=== PATIENT | female | born 1945 | race Caucasian/White ===

== ENCOUNTER 2020-09-29 08:43 | Emergency (ER) | payer MEDICARE, SELFPAY ==
[2020-09-29] VITALS (7 sets, daily range): BP systolic 148–169; BP diastolic 84–99; PULSE 66–78; RESP 12–18; TEMP 36.4; O2SAT 98–100
[2020-09-29 09:43] LABS: Add Urine Microscopic? YES; Appearance Urine Clear (Clear); Bilirubin Urine Negative (Negative); Blood Urine Negative (Negative); Color Urine Yellow (Yellow); Glucose Urine UA Negative (Negative); Ketones Urine Negative (Negative); Leukocyte Esterase Ur Negative LEU/UL (Negative); Mucus Urine Rare /lpf; Nitrate Urine Negative (Negative); Protein Urine Negative (Negative); RBC Urine 0-2 /hpf (0-2); Specific Grav Ur 1.014 (1.001-1.035); Squamous Epithelial Cell Urine Occasional /hpf (Few); Urobilinogen Urine Negative mg/dL (<2.0)
--- NOTE | 2020-09-29 10:13 | PC.NURSE ---
This nurse attempted blood draw x 1, factory laborer attempted x 1. Unsuccessful, phlebotomy notified and at bedside.
[2020-09-29 10:27] LABS: Basophils Percent Auto 0.3 % (0.2-1.2); Eosinophils Absolute Auto 0.1 K/mm3 (0-0.3); Eosinophils Percent Auto 0.7 % (0-4.4); Hematocrit 43.4 % (37.0-47.0); Hemoglobin 14.4 g/dL (12.0-15.0); Immature Granulocyte Absolute 0.03 K/mm3 (0.00-0.031); Immature Granulocyte Percent A 0.4 % (0-0.5); Immature Platelet Fraction Pct 3.6 % (0.9-11.2); Lymphocytes Absolute Auto 0.88 K/mm3 (0.9-3.2); Mean Corpuscular HGB Conc 33.2 g/dl (32-36); Mean Corpuscular Hemoglobin 31.6 pg (26-34); Mean Corpuscular Volume 95.2 fl (80-100); Mean Platelet Volume 10.5 fl (7.4-10.4); Monocytes Absolute Auto 0.4 K/mm3 (0.1-0.6); Monocytes Percent Auto 5.2 % (2.6-8.5); Neutrophils Percent Auto 81.4 % (45.5-73.1); Platelet Count Result 131 k/mm3 (150-375); Red Blood Count 4.56 M/mm3 (4.2-5.4); Red Cell Distribution Width 13.7 % (11.5-14.5); White Blood Count 7.3 K/mm3 (4.5-10.0)
--- NOTE | 2020-09-29 10:28 | ED.GENADULT ---
HPI - General Adult General Chief complaint: Seizure Stated complaint: SZ Time Seen by Provider: 09/29/20 08:50 History of Present Illness HPI narrative: Patient is a 75-year-old female who presents ER status post seizure. Patient has history of seizures and takes Keppra. Her last seizure was 2 years ago. She had just taken her antiepileptics right before having a seizure. Lasted 2 minutes or less. [facility] for profound dementia. She has a home caregiver who assists the with the patient's care. Patient did not experience any trauma. She presents postictal. At baseline patient is nonverbal. Related Data Home Medications Medication Instructions Recorded Confirmed lactobacillus combination no.8 3,000 mmu cells PO DAILY 09/29/20 [Adult Probiotic] olanzapine 5 mg PO HS 09/29/20 Allergies Allergy/AdvReac Type Severity Reaction Status Date / Time Penicillins Allergy Unknown Verified 09/29/20 08:57 Review of Systems Review of Systems: ROS unobtainable: Yes unobtainable due to medical condition and unobtainable due to mental status PMFSH Past Medical History Medical History (Updated 09/29/20 @ 13:30 by [facility] Erickson MD) Alzheimer's dementia with behavioral disturbance Hypothyroidism (acquired) Right hemiplegia Seizure disorder Subarachnoid hemorrhage Unable to walk Family History Family History (Updated 09/24/16 @ 10:04 by DOCTOR UNKNOWN) Mother Diabetes mellitus Father Malignant neoplasm of prostate Sibling Family history of malignant neoplasm of breast in first degree relative Social History Social History (Updated 12/23/19 @ 10:59 by Carol Geller) Social History: Smoking status: Never smoker Second hand tobacco smoke exposure: No Alcohol intake: never Substance use type: does not use Gender identity (if verbalized by the patient): Female Exam Narrative: Exam Narrative: GENERAL: Well-appearing, well-nourished, and in no acute distress. HEAD: Normocephalic, atraumatic. EYES: PERRL and EOMI. CHEST: Clear to auscultation. No respiratory distress. HEART: Regular rate and rhythm. Normal peripheral pulses. ABDOMEN: Soft, nontender, nondistended. EXTREMITIES: Normal range of motion. 2+edema. SKIN: Warm, dry, no rash. NEURO: POpens eyes to speech and reacts to pain. Alert and oriented x 0. Course Course Emergency Course: Patient now at neurologic baseline after prolonged observation according to . I discussed case with Priya Lewis the patient's nurse at [facility]. She checks Keppra levels on the patient regularly and will continue to evaluate the patient the home. No recommendation for change medications. Vital Signs Vital signs: Vital Signs Temperature 97.6 F 09/29/20 08:49 Pulse Rate 78 09/29/20 08:49 Respiratory Rate 16 09/29/20 08:49 Blood Pressure 159/99 H 09/29/20 08:49 Pulse Oximetry 98 09/29/20 08:49 Temperature 97.6 F 09/29/20 08:49 Pulse Rate 68 09/29/20 12:02 Respiratory Rate 18 09/29/20 12:02 Blood Pressure 169/98 H 09/29/20 12:02 Pulse Oximetry 99 09/29/20 12:02 Medical Decision Making Vital Signs Vital Signs: Vital Signs Temperature 97.6 F 09/29/20 08:49 Pulse Rate 78 09/29/20 08:49 Respiratory Rate 16 09/29/20 08:49 Blood Pressure 159/99 H 09/29/20 08:49 Pulse Oximetry 98 09/29/20 08:49 Temperature 97.6 F 09/29/20 08:49 Pulse Rate 68 09/29/20 12:02 Respiratory Rate 18 09/29/20 12:02 Blood Pressure 169/98 H 09/29/20 12:02 Pulse Oximetry 99 09/29/20 12:02 Lab Data Result diagrams: 09/29/20 10:18 09/29/20 10:18 Labs: Lab Results 09/29/20 09/29/20 09/29/20 Range/Units 09:33 10:18 10:18 WBC 7.3 (4.5-10.0) K/mm3 RBC 4.56 (4.2-5.4) M/mm3 Hgb 14.4 (12.0-15.0) g/dL Hct 43.4 (37.0-47.0) % MCV 95.2 (80-100) fl MCH 31.6 (26-34) pg MCH
[2020-09-29 10:36] LABS: Anion Gap 4 mmol/L (8-16); Blood Urea Nitrogen 15 mg/dL (7-17); Calcium 8.8 mg/dL (8.4-10.2); Carbon Dioxide 31 mmol/L (22-30); Chloride 107 mmol/L (98-107); Estimated CRCL calculation 71 ml/min; Estimated Glomerular Filt Rate > 60; Glucose 136 mg/dL (65-105); Potassium 3.8 mmol/L (3.4-5.0); Sodium 142 mmol/L (137-145)
== END 2020-09-29 14:29 | disposition home or self-care (01) ==
PROVIDERS: Emergency Provider Emergency Medicine; PCP Family Medicine
DX: G40.909 Epilepsy, unspecified, not intractable, without status epilepticus (principal); G30.9 Alzheimer's disease, unspecified; F02.81 Dementia in other diseases classified elsewhere, unspecified severity, with behavioral disturbance; E03.9 Hypothyroidism, unspecified
CPT/HCPCS: 36415; 51701; 80048; 81001; 85025; 85055; 99283

== ENCOUNTER 2022-02-06 11:24 | Emergency (ER) | payer MEDICARE, SELFPAY ==
--- NOTE | ~2022-02-06 | XR_ITS ---
XR chest 1V portable DATE: 02/06/2022 15:25 INDICATION: Cough TECHNIQUE: Portable AP chest on 02/06/2022 at 1521 hours COMPARISON: 01/06/2018 AP chest FINDINGS: There is borderline heart size. There is aortic ectasia and unfolding. No pulmonary infiltrate or consolidation, pulmonary vascular congestion or pleural effusion or pneumo thorax. Diffuse osteopenia. IMPRESSION: Borderline heart size Aortic ectasia and unfolding No active pulmonary disease Reviewed, dictated and finalized at location A.
[2022-02-06 11:22] VITALS: BP 144/79; PULSE 69; RESP 15; TEMP 36.4; O2SAT 100
[2022-02-06 12:56] VITALS: BP 144/93
[2022-02-06 13:00] LABS: Basophils Percent Auto 0.3 % (0.2-1.2); Eosinophils Absolute Auto 0.1 K/mm3 (0-0.3); Eosinophils Percent Auto 0.8 % (0-4.4); Hematocrit 41.6 % (37.0-47.0); Hemoglobin 13.7 g/dL (12.0-15.0); Immature Granulocyte Absolute 0.04 K/mm3 (0.00-0.031); Immature Granulocyte Percent A 0.6 % (0-0.5); Immature Platelet Fraction Pct 5.1 % (0.9-11.2); Lymphocytes Absolute Auto 0.95 K/mm3 (0.9-3.2); Lymphocytes Percent Auto 14.7 % (18.3-44.2); Mean Corpuscular HGB Conc 32.9 g/dl (32-36); Mean Corpuscular Hemoglobin 31.9 pg (26-34); Mean Platelet Volume 10.6 fl (7.4-10.4); Monocytes Absolute Auto 0.4 K/mm3 (0.1-0.6); Monocytes Percent Auto 6.3 % (2.6-8.5); Neutrophils Percent Auto 77.3 % (45.5-73.1); Platelet Count Result 88 k/mm3 (150-375); Red Blood Count 4.29 M/mm3 (4.2-5.4); Red Cell Distribution Width 15.1 % (11.5-14.5); White Blood Count 6.5 K/mm3 (4.5-10.0)
[2022-02-06 13:09] LABS: Alanine Aminotransferase 26 U/L (4-35); Albumin Level 3.8 g/dL (3.5-5.1); Alkaline Phosphatase 138 U/L (38-126); Anion Gap 2 mmol/L (8-16); Aspartate Amino Transferase 35 U/L (14-36); Bilirubin,Total 0.5 mg/dL (0.2-1.3); Blood Urea Nitrogen 14 mg/dL (7-17); Calcium 8.9 mg/dL (8.4-10.2); Carbon Dioxide 30 mmol/L (22-30); Chloride 107 mmol/L (98-107); Estimated CRCL calculation 60 ml/min; Estimated Glomerular Filt Rate > 60; Glucose 106 mg/dL (65-110); Potassium 4.4 mmol/L (3.4-5.0); Sodium 139 mmol/L (137-145)
[2022-02-06 13:47] LABS: Add Urine Microscopic? NO; Appearance Urine Clear (Clear); Bilirubin Urine Negative (Negative); Blood Urine Negative (Negative); Color Urine Yellow (Yellow); Glucose Urine UA Negative (Negative); Ketones Urine Negative (Negative); Leukocyte Esterase Ur Negative LEU/UL (Negative); Nitrate Urine Negative (Negative); Protein Urine Negative (Negative); Specific Grav Ur 1.013 (1.001-1.035); Urobilinogen Urine Negative mg/dL (<2.0)
[2022-02-06 14:27] VITALS: BP 144/81; PULSE 62; RESP 20; O2SAT 98
--- NOTE | 2022-02-06 16:03 | ED.GENADULT ---
HPI - General Adult General Chief complaint: Urogenital-Female Stated complaint: ?seizure Time Seen by Provider: 02/06/22 12:09 Source: family Mode of arrival: EMS Limitations: altered mental status and dementia History of Present Illness HPI narrative: 76-year-old with a history of dementia, seizures was brought in from home to rule out infection. states that he checked diapers this morning it was foul-smelling he thinks she has a UTI. No history of fever or chills had 4 seizures since last year. He also mentions that patient has not eaten all day today however yesterday she did eat. No history of cough or shortness of breath. She is presently in hospice care Onset (ago): day(s) (1) Related Data Home Medications Medication Instructions Recorded Confirmed lactobacillus combination no.8 3,000 mmu cells PO DAILY 09/29/20 [Adult Probiotic] olanzapine 5 mg PO HS 09/29/20 Allergies Allergy/AdvReac Type Severity Reaction Status Date / Time Penicillins Allergy Unknown Verified 02/06/22 11:26 Review of Systems Review of Systems: ROS unobtainable: Yes unobtainable due to mental status PMFSH Past Medical History Medical History Alzheimer's dementia with behavioral disturbance Hypothyroidism (acquired) Right hemiplegia Seizure disorder Subarachnoid hemorrhage Unable to walk Family History Family History Mother Diabetes mellitus Father Malignant neoplasm of prostate Sibling Family history of malignant neoplasm of breast in first degree relative Social History Social History Social History: Smoking status: Never smoker Second hand tobacco smoke exposure: No Alcohol intake: never Substance use type: does not use Gender identity (if verbalized by the patient): Female Exam Const: General: no acute distress Nutritional Appearance: well nourished Limitations: other limitations (non verbal , sleeping ) HENMT: Head: normal to inspection Chest: Chest palpation & inspection: normal inspection of the chest Resp: Effort & Inspection: normal respiratory effort Auscultation: clear to auscultation bilaterally Cardio: Rate: regular rate Back/Spine/Pelvis: Back: no CVA tenderness Skin: General skin exam: normal color Neuro: Other: atbase line Course Course Emergency Course: Inform the about her lab work, chest x-ray findings. And see any source of infection at this time. will take her home. Vital Signs Vital signs: Vital Signs Temperature 36.4 C 02/06/22 11:22 Pulse Rate 69 02/06/22 11:22 Respiratory Rate 15 02/06/22 11:22 Blood Pressure 144/79 H 02/06/22 11:22 Pulse Oximetry 100 02/06/22 11:22 Temperature 36.4 C 02/06/22 11:22 Pulse Rate 62 02/06/22 14:27 Respiratory Rate 20 02/06/22 14:27 Blood Pressure 144/81 H 02/06/22 14:27 Pulse Oximetry 98 02/06/22 14:27 Medical Decision Making Vital Signs Vital Signs: Vital Signs Temperature 36.4 C 02/06/22 11:22 Pulse Rate 69 02/06/22 11:22 Respiratory Rate 15 02/06/22 11:22 Blood Pressure 144/79 H 02/06/22 11:22 Pulse Oximetry 100 02/06/22 11:22 Temperature 36.4 C 02/06/22 11:22 Pulse Rate 62 02/06/22 14:27 Respiratory Rate 20 02/06/22 14:27 Blood Pressure 144/81 H 02/06/22 14:27 Pulse Oximetry 98 02/06/22 14:27 Lab Data Result diagrams: 02/06/22 12:53 02/06/22 12:53 Labs: Lab Results 02/06/22 02/06/22 02/06/22 Range/Units 12:53 12:53 12:53 WBC 6.5 (4.5-10.0) K/mm3 RBC 4.29 (4.2-5.4) M/mm3 Hgb 13.7 (12.0-15.0) g/dL Hct 41.6 (37.0-47.0) % MCV 97.0 (80-100) fl MCH 31.9 (26-34) pg MCHC 32.9 (32-36) g/dl RDW 15.1 H (11.5-14.5) % Plt Count 88 L (150-375) k/mm3 MPV 10.6 H (7.4-10.4) fl
[2022-02-06 16:16] VITALS: BP 140/88; PULSE 64; RESP 20; O2SAT 96
--- NOTE | 2022-02-06 16:20 | PC.NURSE ---
discharge report called to hospice nurse, Jessa Latham. records faxed to office. [phone]
== END 2022-02-06 16:56 | disposition hospice, home (50) ==
PROVIDERS: Emergency Provider Family Medicine; PCP Family Medicine
DX: G30.9 Alzheimer's disease, unspecified (principal); F02.80 Dementia in other diseases classified elsewhere, unspecified severity, without behavioral disturbance, psychotic disturbance, mood disturbance, and anxiety; E03.9 Hypothyroidism, unspecified; G40.909 Epilepsy, unspecified, not intractable, without status epilepticus
CPT/HCPCS: 36415; 51701; 71045; 80053; 81003; 84443; 85025; 85055; 99283